=== PATIENT | female | born 1955 | race African-American/Black ===

== ENCOUNTER → 2016-11-02 | Outpatient (CLI) | payer OTHER ==
[2016-11-02 17:05] LABS: BASOPHIL % 1.1 % (0-2); PLATELET COUNT 259 x10^3mcL (130-400); RED CELL DISTRIBUTION WIDTH 14.4 % (11.5-14.5)
[2016-11-02 17:19] LABS: ALBUMIN 3.7 g/dL (3.4-5.0); ALKALINE PHOSPHATASE 128 U/L (46-116); ALT/SGPT 24 U/L (14-59); AST/SGOT 20 U/L (15-37); BILIRUBIN TOTAL 0.2 mg/dL (0.20-1.00); CALCIUM 8.9 mg/dL (8.5-10.1); CARBON DIOXIDE 28.4 mmol/L (21-32); CHLORIDE SERUM 106 mmol/L (98-107); CREATININE SERUM 0.9 mg/dL (0.6-1.0); GFR1 > 60 mL/min; GLUCOSE SERUM 90 mg/dL (74-106); POTASSIUM SERUM 3.7 mmol/L (3.5-5.1); SODIUM SERUM 140 mmol/L (136-145); TOTAL PROTEIN, SERUM 7.2 g/dL (6.4-8.2)
== END | disposition home or self-care (01) ==
LOC: LB 16:24
PROVIDERS: Family Medicine
DX: K92.1 Melena (principal)